=== PATIENT | female | born 1970 | race Hispanic/Latino ===

== ENCOUNTER 2021-09-05 09:42 | Inpatient (IN) | payer OTHER ==
--- NOTE | 2021-09-05 10:43 | EDPHYS ---
Physician Documentation [facility] Name: Shanae Loco Age: 50 yrs Sex: Female : 1970 Arrival Date: 09/05/2021 Time: 09:53 Bed 5 Private MD: ED Physician Jorge Murillo HPI: 09/05 10:36 This 50 yrs old Female presents to ER via EMS with complaints of possible aspiration. rn 10:36 The patient has shortness of breath at rest. Onset: The symptoms/episode began/occurred rn just prior to arrival. Duration: The symptoms are continuous. The patient's shortness of breath is aggravated by nothing, is alleviated by nothing. Severity of symptoms: At their worst the symptoms were moderate in the emergency department the symptoms have improved. The patient has not experienced similar symptoms in the past. The patient has been recently seen by a physician:. Pt getting endoscopy, sent here for possible aspiration following procedure, began to cough and EMS was told O2 80% on RA. EMS got O2 90%. NO chronic lung problems. + cough and sob. Was not ill prior to procedure. States was getting scoped for persistent abd pain, told might need gallbladder removed soon.. Historical: - Allergies: 10:32 No Known Allergies; ph - PMHx: 10:32 Diabetes mellitus; ph - Immunization history:: Adult Immunizations unknown. - Social history:: Smoking status: Patient denies any tobacco usage or history of. - Family history:: not pertinent. - Hospitalizations: : No recent hospitalization is reported. ROS: 10:36 Constitutional: Negative for fever, chills, and weight loss, Eyes: Negative for injury, rn pain, redness, and discharge, Neck: Negative for injury, pain, and swelling, Cardiovascular: Negative for chest pain, palpitations, and edema, Respiratory: Negative for wheezing, and pleuritic chest pain, Abdomen/GI: Negative for vomiting, diarrhea, and constipation, Back: Negative for injury and pain, MS/Extremity: Negative for injury and deformity, Skin: Negative for injury, rash, and discoloration, Neuro: Negative for headache, weakness, numbness, tingling, and seizure. Exam: 10:36 Constitutional: This is a well developed, well nourished patient who is awake, alert, rn mild tachypnea Head/Face: Normocephalic, atraumatic. Eyes: Periorbital areas with no swelling, redness, or edema. ENT: MMM, no stridor Neck: Trachea midline, no masses palpated, and no cervical lymphadenopathy. No crepitus Cardiovascular: Regular rate and rhythm. No pulse deficits. Respiratory: + mild tachypnea, no retractions, + coughing Abdomen/GI: soft, mild epigastric tenderness Skin: Warm, dry MS/ Extremity: Pulses equal, no cyanosis. Neuro: Awake and alert, GCS 15 11:54 ECG was reviewed by the Attending Physician. rn Vital Signs: 10:28 BP 137 / 71; Pulse 99; Resp 18; Temp 97.4; Pulse Ox 93% on R/A; Weight 90.72 kg; Height ph 5 ft. 4 in. (162.56 cm); 11:30 BP 154 / 72; Pulse 96; Resp 24; Pulse Ox 91% on R/A; ph 12:33 BP 142 / 64; Pulse 101; Resp 20; Pulse Ox 94% on 2 lpm NC; ph 13:30 BP 136 / 78; Pulse 100; Resp 20; Pulse Ox 93% on 2 lpm NC; ph 14:30 BP 139 / 68; Pulse 101; Resp 20; Temp 97.8(TE); Pulse Ox 93% 2 lpm ; ph 10:28 Body Mass Index 34.33 (90.72 kg, 162.56 cm) ph MDM: 09:53 Patient medically screened. rn 10:40 Differential diagnosis: pneumonia, Pneumothorax pulmonary edema, aspiration. Data rn reviewed: vital signs, nurses notes, lab test result(s), radiologic studies, and as a result, I will admit patient. Counseling: I had a detailed discussion with the patient and/or guardian regarding: the historical points, exam findings, and any diagnostic results supporting the discharge/admit diagnosis, lab results, radiology results, the need for further work-up and treatment in the hospital. Response to treatment: the patient's symptoms have mildly improved after treatment, and as a result, I will admit patient. Admission orders: after a detailed discussion of the patient's condition and case, the admit orders are written by me. 09/05 08:54 Order name: [facility]; Complete Time: 11:43 rn 09/05 08:54 Order name: Blood Culture Adult (2) rn 09/05 09:54 Order name: CBC with Diff; Complete Time: 11:43 rn 09/05 09:54 Order name: Hepatic Function; Complete Time: 11:43 rn 09/05 09:54 Order name: Lipase; Complete Time: 11:43 rn 09/05 09:54 Order name: Magnesium; Complete Time: 11:43 rn 09/05 09:54 Order name: NT PRO-BNP; Complete Time: 11:43 rn 09/05 09:54 Order name: PT-INR; Complete Time: 11:43 rn 09/05 09:54 Order name: Ptt, Activated; Complete Time: 11:43 rn 09/05 09:54 Order name: XRAY CXR (1 view); Complete Time: 12:24 rn 09/05 09:54 Order name: ABG; Complete Time: 11:43 rn 09/05 09:54 Order name: SARS-COV-2 RT PCR (Document "Date of Onset" if Symptomatic) rn 09/05 12:10 Order name: COVID-19 SARS RT PCR (Document "Date of Onset" if Symptomatic) 09/05 09:54 Order name: EKG; Complete Time: 09:55 rn 09/05 09:54 Order name: Cardiac monitoring; Complete Time: 10:34 rn 09/05 09:54 Order name: EKG - Nurse/Tech; Complete Time: 10:50 rn 09/05 09:54 Order name: IV Saline Lock; Complete Time: 11:26 rn 09/05 09:54 Order name: Labs collected and sent; Complete Time: 11:26 rn 09/05 09:54 Order name: O2 Per Protocol; Complete Time: 10:33 rn 09/05 09:54 Order name: O2 Sat Monitoring; Complete Time: 10:33 rn EC:54 Rate is 104 beats/min. Rhythm is regular. QRS [place] is Normal. Right axis deviation rn noted. QRS is negative in leads I, aVF. AL interval is normal. QRS interval is normal. QT interval is normal. No Q waves. T waves are Normal. No ST changes noted. Clinical impression: Sinus tachycardia. Interpreted by me. Reviewed by me. Administered Medications: 10:34 Drug: Xopenex (levalbuterol) 1.25 mg Route: Inhalation; ph 11:00 Follow up: Response: No adverse reaction ph 12:18 Drug: Zosyn (piperacillin-tazobactam) 3.375 grams Route: IVPB; Infused Over: 60 mins; ph Site: right antecubital; 13:20 Follow up: Response: No adverse reaction; IV Status: Completed infusion ph 12:18 Drug: Tussionex Pennkinetic ER (chlorpheniramine-hydrocodone) Suspension 5 ml Route: PO;ph 12:30 Follow up: Response: No adverse reaction ph 12:18 Drug: ProTONIX (pantoprazole) 40 mg Route: IVP; Site: right antecubital; ph 12:30 Follow up: Response: No adverse reaction ph 13:20 Drug: Zofran (Ondansetron) 4 mg Route: IVP; Site: right antecubital; jl7 13:40 Follow up: Response: No adverse reaction; Nausea is decreased ph 13:23 Drug: morphine 4 mg Route: IVP; Infused Over: 4 mins; Site: right antecubital; jl7 13:40 Follow up: Response: No adverse reaction; Pain is decreased; RASS: Alert and Calm (0) ph Disposition Summary: 09/05/21 10:42 Hospitalization Ordered Hospitalization Status: Inpatient Admission rn Provider: Soto Rees rn Location: Telemetry/MedSurg (Inpatient) rn Condition: Stable rn Problem: new rn Symptoms: have improved rn Bed/Room Type: Standard rn Room Assignment: [facility](09/05/21 14:10) [email or web address] Diagnosis - Aspiration Pneumonitis rn - Hypoxemia rn Forms: - Medication Reconciliation Form rn - SBAR form rn Signatures: Dispatcher [employer] Jorge Pope MD MD rn Hall, Patricia, RN RN ph Leal, Jahala, RN RN Soco Mustafa [email or web address] Corrections: (The following items were deleted from the chart) 14:10 10:42 rn kj1
--- NOTE | 2021-09-05 10:43 | ER ---
Nurse's Notes [facility] Name: Shanae Loco Age: 50 yrs Sex: Female : 1970 Arrival Date: 09/05/2021 Time: 09:53 Bed 5 Private MD: Diagnosis: Aspiration Pneumonitis;Hypoxemia Presentation: 09/05 10:28 Chief complaint: EMS states: Pt was having endoscopy at center, Spo2 dropped to 50s ph during procedure and it is believed that the pt may have aspirated, Spo2 improved to 93% on 4L NC, pt received 400 mg propofol, 4 mg of zofran, and albuterol x 2, other VSS. Coronavirus screen: Vaccine status: Patient reports receiving the 2nd dose of the covid vaccine. Ebola Screen: No symptoms or risks identified at this time. Initial Sepsis Screen: Does the patient meet any 2 criteria? No. Patient's initial sepsis screen is negative. Does the patient have a suspected source of infection? No. Patient's initial sepsis screen is negative. Risk Assessment: Do you want to hurt yourself or someone else? Patient reports no desire to harm self or others. Onset of symptoms was September 05, 2021. 10:28 Method Of Arrival: EMS: [facility] ph 10:28 Acuity: DANIEL 2 ph Historical: - Allergies: 10:32 No Known Allergies; ph - PMHx: 10:32 Diabetes mellitus; ph - Immunization history:: Adult Immunizations unknown. - Social history:: Smoking status: Patient denies any tobacco usage or history of. - Family history:: not pertinent. - Hospitalizations: : No recent hospitalization is reported. Screenin:34 Abuse screen: Denies threats or abuse. Denies injuries from another. Nutritional ph screening: No deficits noted. Tuberculosis screening: No symptoms or risk factors identified. Fall Risk None identified. Assessment: 10:33 General: Appears in no apparent distress. uncomfortable, Behavior is calm, cooperative, ph appropriate for age. Pain: Complains of pain in chest and abdomen. Neuro: Level of Consciousness is awake, obeys commands, Oriented to person, place, time, situation. Cardiovascular: Capillary refill < 3 seconds in bilateral fingers Patient's skin is warm and dry. Respiratory: Reports shortness of breath at rest Airway is patent Respiratory effort is even, unlabored, Respiratory pattern is regular, symmetrical. Derm: Skin is intact, is healthy with good turgor, Skin is pink, warm \\T\\ dry. 11:30 Reassessment: Patient appears in no apparent distress at this time. Patient and/or ph family updated on plan of care and expected duration. Pain level reassessed. Patient is alert, oriented x 3, equal unlabored respirations, skin warm/dry/pink. 12:32 Reassessment: Patient appears in no apparent distress at this time. Patient and/or ph family updated on plan of care and expected duration. Pain level reassessed. Patient is alert, oriented x 3, equal unlabored respirations, skin warm/dry/pink. 13:30 Reassessment: Patient appears in no apparent distress at this time. Patient and/or ph family updated on plan of care and expected duration. Pain level reassessed. Patient is alert, oriented x 3, equal unlabored respirations, skin warm/dry/pink. 14:30 Reassessment: Patient appears in no apparent distress at this time. Patient and/or ph family updated on plan of care and expected duration. Pain level reassessed. Patient is alert, oriented x 3, equal unlabored respirations, skin warm/dry/pink. Vital Signs: 10:28 BP 137 / 71; Pulse 99; Resp 18; Temp 97.4; Pulse Ox 93% on R/A; Weight 90.72 kg; Height ph 5 ft. 4 in. (162.56 cm); 11:30 BP 154 / 72; Pulse 96; Resp 24; Pulse Ox 91% on R/A; ph 12:33 BP 142 / 64; Pulse 101; Resp 20; Pulse Ox 94% on 2 lpm NC; ph 13:30 BP 136 / 78; Pulse 100; Resp 20; Pulse Ox 93% on 2 lpm NC; ph 14:30 BP 139 / 68; Pulse 101; Resp 20; Temp 97.8(TE); Pulse Ox 93% 2 lpm ; ph 10:28 Body Mass Index 34.33 (90.72 kg, 162.56 cm) ph ED Course: 09:53 Patient arrived in ED. rn 09:53 Jorge Murillo MD is Attending Physician. rn 10:28 Sammie Cervantes RN is Primary Nurse. ph 10:32 Triage completed. ph 10:32 Arm band placed on Patient placed in an exam room, on a stretcher. ph 10:34 Patient has correct armband on for positive identification. Placed in gown. Bed in low ph position. Call light in reach. Side rails up X 1. 10:41 Soto Rees is Hospitalizing Provider. rn 10:49 EKG done, by ED staff. tp1 10:59 XRAY CXR (1 view) In Process Unspecified. EDMS 13:52 COVID-19 SARS RT PCR (Document "Date of Onset" if Symptomatic) Sent. kj1 15:45 No provider procedures requiring assistance completed. Patient admitted, IV remains in ph place. Administered Medications: 10:34 Drug: Xopenex (levalbuterol) 1.25 mg Route: Inhalation; ph 11:00 Follow up: Response: No adverse reaction ph 12:18 Drug: Zosyn (piperacillin-tazobactam) 3.375 grams Route: IVPB; Infused Over: 60 mins; ph Site: right antecubital; 13:20 Follow up: Response: No adverse reaction; IV Status: Completed infusion ph 12:18 Drug: Tussionex Pennkinetic ER (chlorpheniramine-hydrocodone) Suspension 5 ml Route: PO;ph 12:30 Follow up: Response: No adverse reaction ph 12:18 Drug: ProTONIX (pantoprazole) 40 mg Route: IVP; Site: right antecubital; ph 12:30 Follow up: Response: No adverse reaction ph 13:20 Drug: Zofran (Ondansetron) 4 mg Route: IVP; Site: right antecubital; jl7 13:40 Follow up: Response: No adverse reaction; Nausea is decreased ph 13:23 Drug: morphine 4 mg Route: IVP; Infused Over: 4 mins; Site: right antecubital; jl7 13:40 Follow up: Response: No adverse reaction; Pain is decreased; RASS: Alert and Calm (0) ph Medication: 10:34 VIS not applicable for this client. ph Outcome: 10:42 Decision to Hospitalize by Provider. rn 15:49 Patient left the ED. kj1 15:49 Admitted to Med/surg accompanied by tech, via wheelchair, with chart. ph 15:49 Condition: stable 15:49 Instructed on the need for admit. Signatures: Dispatcher [employer] EDJorge Jackson MD MD rn Hall, Sammie, RN RN ph Jennifer, CYNTHIA Tineo RN 7 Soco Anderson1 Sapphire Ambrocio 1
[2021-09-05 11:01] LABS: Absolute Lymphocytes (CBC) 1.7 K/uL (0.7-4.9); Hematocrit 42.5 % (36.0-45.0); Lymphocytes % 9.4 % (15.3-44.8); MCV 86.7 fL (80-100); MPV 9.1 fL (7.6-11.3)
[2021-09-05 11:06] LABS: Protime INR 1.03
[2021-09-05 11:13] LABS: Albumin 3.3 g/dL (3.4-5.0); Bilirubin Direct 0.2 mg/dL (0-0.2); Bilirubin Total 0.5 mg/dL (0.2-1.0); Magnesium 1.8 mg/dL (1.8-2.4); Potassium 4.3 mmol/L (3.5-5.1); Protein, Total 7.9 g/dL (6.4-8.2)
[2021-09-05 11:18] LABS: Blood Gas Oxyhemoglobin 95.3 % (94-97); Blood O2 Saturation 97.3 % (92-98.5)
[2021-09-05] MEDS ORDERED: NA CHLORIDE 0.9% 100 ML ONE (11:39)
[2021-09-05] MEDS ORDERED: PIPERACIL/TAZO 3.375 GM VIAL IV ONE (11:39)
[2021-09-05] MEDS ORDERED: PANTOPRAZOLE 40 MG INJ ONE (12:16)
[2021-09-05] MEDS ORDERED: HYDROCODONE/CHLORPHEN 5 ML/OSYR ONE (12:16)
--- NOTE | 2021-09-05 12:18 | P.HP ---
Certification for Inpatient Patient admitted to: Observation With expected LOS: <2 Midnights Practitioner: I am a practitioner with admitting privileges, knowledge of patient current condition, hospital course, and medical plan of care. Services: Services provided to patient in accordance with Admission requirements found in Title 42 Section 412.3 of the Code of Federal Regulations Patient History Date of Service: 09/05/21 Reason for admission: Shortness of breath and coughing. History of Present Illness: 50-year-old woman with a history of diabetes mellitus type 2 on metformin, who underwent EGD for complaint of abdominal pain was brought to the emergency department due to coughing, shortness of breath, wheezing and respiratory distress right after EGD. Patient is suspected to have aspirated during the procedure. Per report, she was hypoxic with oxygen saturation around 80%. EMS was called and patient was brought to the emergency department where her oxygen saturation was 93% on room air. Chest x-ray done in the ED suggest left lung infiltrate. She was maintained on 1 L by nasal cannula of oxygen in the ED. she has leukocytosis and blood sugars significantly elevated. Patient hospitalized for further management. Allergies No Known Allergies Allergy (Unverified 09/05/21 16:04) - Past Medical/Surgical History Diabetic: Yes -: DM type II -: Chronic abdominal pain -: Obesity -: History of anxiety and depression - Family History Father -: Diabetes - Social History Smoking Status: Never smoker Alcohol use: No CD- Drugs: No Place of Residence: Home Review of Systems Other: Patient denied any chest pain or fever. She denied any vomiting. No prior diarrhea. She denied any dysuria. Except as documented, all other systems reviewed and negative. Physical Examination - Physical Exam General: Alert, In no apparent distress, Oriented x3 HEENT: Atraumatic, PERRLA, Mucous membr. moist/pink, Other (Poor dentition), EOMI, Sclerae nonicteric Neck: JVD not distended Respiratory: Expiratory wheezes (Bilateral, adequate breath sounds bilaterally, no crackles.) Cardiovascular: No edema, Regular rate/rhythm, Normal S1 S2, No murmurs Capillary refill: <2 Seconds Gastrointestinal: Normal bowel sounds, Soft and benign, Non-distended, No tenderness, No rebound Musculoskeletal: No swelling, No tenderness Integumentary: No rashes, No erythema, No cyanosis Neurological: Normal speech, Normal strength at 5/5 x4 extr, Cranial nerves 3-12 intact Lymphatics: No axilla or inguinal lymphadenopathy - Studies Laboratory Data (last 24 hrs) 09/05/21 10:45: PT 11.3, INR 1.03, APTT 30.3 09/05/21 10:45: WBC 18.3 H, Hgb 14.2, Hct 42.5, Plt Count 285 09/05/21 10:45: Sodium 137, Potassium 4.3, BUN 15, Creatinine 0.72, Glucose 364 H, Magnesium 1.8, Total Bilirubin 0.5, AST 7 L, ALT 18, Alkaline Phosphatase 121 H, Lipase 52 L Assessment and Plan - Problems (Diagnosis) (1) Aspiration pneumonia Current Visit: Yes Status: Acute (2) Sepsis Current Visit: Yes Status: Acute (3) Acute respiratory failure with hypoxia Current Visit: Yes Status: Acute (4) Type 2 diabetes mellitus with hyperglycemia Current Visit: Yes Status: Acute - Plan Admit patient to the medical floor. Sepsis protocol initiated. Patient given IV fluid, started on IV Zosyn for aspiration pneumonia. Also given his IV steroid for aspiration pneumonitis. Follow blood cultures. Blood glucose management with insulin sliding scale. Anticipating patient will also need long-acting insulin coverage. Wean off oxygen as tolerated. Bronchodilators as needed. Hold metformin. Follow blood cultures. - Advance Directives Does patient have a Living Will: No Does patient have a Durable POA for Healthcare: No
--- NOTE | 2021-09-05 12:18 | RAD REPORT ---
EXAM DESCRIPTION: [place] Single View09/05/2021 10:57 am CLINICAL HISTORY: Cough COMPARISON: none FINDINGS: The left lung is hazy. Right lung appears clear. Heart is normal size IMPRESSION: Mid left lung is hazy which may indicate a mild pneumonia
[2021-09-05] MEDS ORDERED: MORPHINE 4 MG/ML SYR ONE (13:15)
[2021-09-05] MEDS ORDERED: ONDANSETRON 4 MG/2 ML VIAL ONE (13:15)
[2021-09-05] MEDS ORDERED: NA CHLORIDE 0.9% 1,000 ML IV SCH (16:05)
[2021-09-05] MEDS: HEPARIN 5000 UNIT/ML 1 ML VIAL SQ SCH (16:25)
[2021-09-05] MEDS: METHYLPREDNISOLONE 40 MG INJ IV SCH (16:26)
[2021-09-05] MEDS: INSULIN -REGULAR HUMAN 50 UNIT/0.5 ML ML SQ SCH ×2 (16:26→21:01)
[2021-09-05 16:43] VITALS: BMI 42.2
--- NOTE | 2021-09-05 16:49 | P.INFCA ---
Sepsis Focused Assessment - Focused Assessment Complete? Sepsis Focused Assessment Completed?: Yes - Sepsis Screen Result Severe Sepsis: Positive Septic Shock: Negative - Evaluation Current stage of sepsis: Severe sepsis - Vital Signs Reviewed: Yes Temperature: 98.7 F Heart rate: 103 Blood Pressure: 125/73 Respiratory Rate: 14 O2 Sat by Pulse Oximetry: 94 - Examination Heart: Regular rate/rhythm, S1, S2 Lungs: Diminished air movement, Wheezes Peripheral pulses: 3+ Normal Peripheral pulse location: Radial Capillary refill: <2 Seconds Skin examination: Normal turgor
[2021-09-05] MEDS: ONDANSETRON 4 MG/2 ML VIAL IV PRN ×2 (17:18→22:58)
[2021-09-05] MEDS: ACETAMINOPHEN 500 MG TAB PO PRN (17:18)
[2021-09-05] MEDS: PIPER TAZO 3.375 GM in NA CHLORIDE 0.9% 100 ML IV SCH (17:18)
[2021-09-05] MEDS: MORPHINE 2 MG/ML SYR IV PRN (22:30)
[2021-09-05] MEDS: FAMOTIDINE 20 MG/2 ML VIAL IV SCH (22:58)
[2021-09-06] MEDS: PIPER TAZO 3.375 GM in NA CHLORIDE 0.9% 100 ML IV SCH ×4 (00:55→18:14)
[2021-09-06] MEDS: METHYLPREDNISOLONE 40 MG INJ IV SCH ×2 (00:56→09:41)
[2021-09-06] MEDS: HEPARIN 5000 UNIT/ML 1 ML VIAL SQ SCH ×3 (00:56→18:14)
[2021-09-06 04:09] LABS: Absolute Lymphocytes (CBC) 1.1 K/uL (0.7-4.9); Hematocrit 40.9 % (36.0-45.0); Lymphocytes % 4.2 % (15.3-44.8); MCV 87.5 fL (80-100); MPV 9.1 fL (7.6-11.3); RBC Red Blood Cell Count 4.67 M/uL (3.86-4.86)
[2021-09-06 04:23] LABS: Phosphorus 3.3 mg/dL (2.5-4.9); Potassium 4.3 mmol/L (3.5-5.1)
[2021-09-06 04:54] LABS: Blood Morphology Comment NOT SEEN (NOT SEEN); Platelet Estimate ADEQ
[2021-09-06] MEDS: INSULIN -REGULAR HUMAN 50 UNIT/0.5 ML ML SQ SCH ×5 (06:06→21:04)
[2021-09-06] MEDS: ACETAMINOPHEN 500 MG TAB PO PRN ×2 (06:14→13:24)
[2021-09-06] MEDS: MORPHINE 2 MG/ML SYR IV PRN (06:21)
--- NOTE | 2021-09-06 07:52 | EKG ---
Test Date: 2021-09-05 Test Time: 10:49:00 Senior Technical Business Analyst: YUNIEL MEASUREMENT RESULTS: Intervals: Rate: 104 IL: 148 QRSD: 70 QT: 370 QTc: 486 [place]: P: 55 IL: 148 QRS: 265 T: 51 INTERPRETIVE STATEMENTS: Sinus tachycardia Right superior axis deviation Anterior infarct, age undetermined Abnormal ECG No previous ECG available for comparison Electronically Signed On 09-06-21 07:48:34 CDT by Alexx Hall
[2021-09-06] MEDS: FAMOTIDINE 20 MG/2 ML VIAL IV SCH (09:40)
[2021-09-06] MEDS ORDERED: NA CHLORIDE 0.9% 250 ML ONE (11:54)
--- NOTE | 2021-09-06 15:17 | P.PN ---
Subjective Date of Service: 09/06/21 Chief Complaint: Shortness of breath and coughing. Patient complaining of cough with hemoptysis. White cell count trended up No recorded fever. She also reports prior trouble with swallowing and was supposed to undergo esophageal dilatation during the endoscopy. She is ambulatory and not hypoxic. Physical Examination - Vital Signs Temperature: 97.9 F Blood Pressure: 149/71 Pulse: 79 Respirations: 18 Pulse Ox (%): 98 - Physical Exam General: Alert, In no apparent distress, Oriented x3 HEENT: Mucous membr. moist/pink Neck: JVD not distended Respiratory: Expiratory wheezes (Mild scattered rhonchi) Cardiovascular: No edema, Regular rate/rhythm, Normal S1 S2 Gastrointestinal: Normal bowel sounds, Soft and benign, Non-distended, No tenderness Musculoskeletal: No swelling Integumentary: No rashes, No erythema Neurological: Normal strength at 5/5 x4 extr, Cranial nerves 3-12 intact Assessment And Plan - Current Problems (Diagnosis) (1) Aspiration pneumonia Current Visit: Yes Status: Acute (2) Sepsis Current Visit: Yes Status: Acute (3) Acute respiratory failure with hypoxia Current Visit: Yes Status: Acute (4) Type 2 diabetes mellitus with hyperglycemia Current Visit: Yes Status: Acute - Plan Continue IV fluid. Continue IV Zosyn for aspiration pneumonia. May increase antibiotic coverage if leukocytosis continues to worsen. Discontinue IV steroid. Blood cultures: No growth to date. Blood glucose management with insulin sliding scale. Added Lantus insulin for persistent hypoglycemia Wean off oxygen as tolerated. Speech therapy consult for dysphagia screen. We will start feeding if patient passes swallow evaluation. Bronchodilators as needed.
[2021-09-06] MEDS: NA CHLORIDE 0.9% 1,000 ML IV SCH ×2 (15:19→21:04)
[2021-09-06] MEDS ORDERED: FAMOTIDINE 20 MG/2 ML VIAL IV ONE (21:10)
[2021-09-07] MEDS: PIPER TAZO 3.375 GM in NA CHLORIDE 0.9% 100 ML IV SCH ×4 (01:02→18:23)
[2021-09-07] MEDS: HEPARIN 5000 UNIT/ML 1 ML VIAL SQ SCH ×3 (01:03→18:23)
[2021-09-07] MEDS: BENZONATATE 100 MG CAP PO PRN (01:58)
[2021-09-07 06:23] LABS: Potassium 3.6 mmol/L (3.5-5.1)
[2021-09-07 06:31] LABS: Absolute Lymphocytes (CBC) 3.2 K/uL (0.7-4.9); Lymphocytes % 15.4 % (15.3-44.8); MCV 87.7 fL (80-100); MPV 9.2 fL (7.6-11.3); RBC Red Blood Cell Count 4.22 M/uL (3.86-4.86)
[2021-09-07] MEDS: NA CHLORIDE 0.9% 1,000 ML IV SCH (06:37)
[2021-09-07] MEDS: FAMOTIDINE 20 MG/2 ML VIAL IV SCH (08:17)
[2021-09-07] MEDS: MORPHINE 2 MG/ML SYR IV PRN (08:17)
[2021-09-07] MEDS: INSULIN -REGULAR HUMAN 50 UNIT/0.5 ML ML SQ SCH ×4 (08:18→21:24)
[2021-09-07] MEDS: FAMOTIDINE 20 MG TAB PO SCH (08:33)
[2021-09-07] MEDS ORDERED: KCL 20 MEQ/100 mL IVPB 20 MEQ/100 ML BAG IV SCH (09:00)
--- NOTE | 2021-09-07 10:57 | RAD REPORT ---
EXAM DESCRIPTION: RAD - Barium Swallow Modified - 09/07/2021 10:32 am CLINICAL HISTORY: Difficulty swallowing FINDINGS: Laryngeal penetration not cleared with thin ,whole pill with thin by cup. Pharyngeal residue vallecular and pyriform all consistancies trace to mild thin puree dry solid whole pill with thin by cup. Osteophyte between c5-c6. Fluoro time: 3 minutes 38 seconds. Twenty-two Fluoroscopic spot series obtained
[2021-09-07] MEDS: ALBUTEROL 2.5 MG/3 ML NEB SOL NEB PRN (17:00)
--- NOTE | 2021-09-07 19:17 | P.PN ---
Subjective Date of Service: 09/07/21 Chief Complaint: Shortness of breath and coughing. Patient seen by speech, modified barium swallow done suggested mild dysphagia. White cell count trending down. No recorded fever. Physical Examination - Vital Signs Temperature: 97.8 F Blood Pressure: 161/77 Pulse: 68 Respirations: 18 Pulse Ox (%): 98 Assessment And Plan - Current Problems (Diagnosis) (1) Aspiration pneumonia Current Visit: Yes Status: Acute (2) Sepsis Current Visit: Yes Status: Acute (3) Acute respiratory failure with hypoxia Current Visit: Yes Status: Acute (4) Type 2 diabetes mellitus with hyperglycemia Current Visit: Yes Status: Acute - Plan Physical examination General: Alert, In no apparent distress, Oriented x3 HEENT: Mucous membr. moist/pink Neck: JVD not distended Respiratory: Lungs clear to auscultation Cardiovascular: No edema, Regular rate/rhythm, Normal S1 S2 Gastrointestinal: Normal bowel sounds, Soft and benign, Non-distended, No tenderness Musculoskeletal: No swelling Integumentary: No rashes, No erythema Neurological: Normal strength at 5/5 x4 extr, Cranial nerves 3-12 intact Continue IV fluid. Continue IV Zosyn for aspiration pneumonia. Off IV steroid. Blood cultures: No growth to date. Blood glucose management with insulin sliding scale. Continue Lantus insulin. Currently tolerating room air Speech therapy input appreciated. Modified barium swallow results reviewed. Patient started on mechanical soft diet. Bronchodilators as needed.
[2021-09-08] MEDS: HEPARIN 5000 UNIT/ML 1 ML VIAL SQ SCH ×3 (00:19→15:56)
[2021-09-08] MEDS: PIPER TAZO 3.375 GM in NA CHLORIDE 0.9% 100 ML IV SCH ×4 (01:14→15:57)
[2021-09-08 06:05] LABS: Potassium 3.5 mmol/L (3.5-5.1)
[2021-09-08] MEDS: NA CHLORIDE 0.9% 1,000 ML IV SCH (06:12)
[2021-09-08] MEDS: MORPHINE 2 MG/ML SYR IV PRN ×2 (07:31→17:47)
[2021-09-08 08:33] LABS: Absolute Lymphocytes (CBC) 3.2 K/uL (0.7-4.9); Hematocrit 37.3 % (36.0-45.0); Lymphocytes % 28.9 % (15.3-44.8); MCV 86.9 fL (80-100); MPV 8.7 fL (7.6-11.3); RBC Red Blood Cell Count 4.29 M/uL (3.86-4.86)
[2021-09-08] MEDS ORDERED: POTASSIUM 25 MEQ EFFERV TAB PO ONE (09:00)
[2021-09-08] MEDS: FAMOTIDINE 20 MG TAB PO SCH (09:20)
[2021-09-08] MEDS: INSULIN -REGULAR HUMAN 50 UNIT/0.5 ML ML SQ SCH ×4 (09:21→22:03)
[2021-09-08] MEDS: ALBUTEROL 2.5 MG/3 ML NEB SOL NEB PRN (12:10)
--- NOTE | 2021-09-08 12:52 | RAD REPORT ---
EXAM DESCRIPTION: [place] Single View09/08/2021 12:34 pm CLINICAL HISTORY: Chest pain COMPARISON: September 05, 2021 FINDINGS: Left lung opacities have partially resolved Right lung appears clear. Heart is normal size IMPRESSION: Improvement in a left pneumonia
[2021-09-08] MEDS: BENZONATATE 100 MG CAP PO PRN ×2 (13:25→22:11)
[2021-09-08] MEDS: ACETAMINOPHEN 500 MG TAB PO PRN (15:56)
[2021-09-09] MEDS: HEPARIN 5000 UNIT/ML 1 ML VIAL SQ SCH ×3 (01:09→15:54)
[2021-09-09] MEDS: PIPER TAZO 3.375 GM in NA CHLORIDE 0.9% 100 ML IV SCH ×2 (01:11→08:39)
[2021-09-09] MEDS: BENZONATATE 100 MG CAP PO PRN (06:56)
[2021-09-09] MEDS: INSULIN -REGULAR HUMAN 50 UNIT/0.5 ML ML SQ SCH ×3 (08:39→16:03)
[2021-09-09] MEDS: FAMOTIDINE 20 MG TAB PO SCH (08:40)
[2021-09-09 08:47] VITALS: O2SAT 96
[2021-09-09] MEDS: ACETAMINOPHEN 500 MG TAB PO PRN ×2 (09:55→17:10)
[2021-09-09] MEDS ORDERED: AMLODIPINE 10 MG TAB PO SCH (10:00)
[2021-09-09] MEDS ORDERED: HYDRALAZINE HCL 20 MG/ML VIAL IV ONE ×3 (11:30→16:00)
[2021-09-09] MEDS: MORPHINE 2 MG/ML SYR IV PRN (12:32)
[2021-09-09] MEDS ORDERED: LORAZEPAM 1 MG TABLET PO PRN (13:52)
[2021-09-09] MEDS ORDERED: GUAIFENESIN/DM 5 ML UCUP PO PRN (13:53)
[2021-09-09] MEDS ORDERED: ZOLPIDEM TARTRATE 10 MG TABLET PO PRN (13:54)
[2021-09-09] MEDS ORDERED: HYDROCODONE/APAP 5/325 MG TAB PO PRN (14:04)
--- NOTE | 2021-09-09 15:38 | P.DS ---
Admission Date: 09/05/21 Discharge Date: 09/09/21 Disposition: ROUTINE DISCHARGE Discharge Condition: FAIR Reason for Admission: Shortness of breath and coughing. - Problems (1) Aspiration pneumonia Current Visit: Yes Status: Acute (2) Sepsis Current Visit: Yes Status: Acute (3) Acute respiratory failure with hypoxia Current Visit: Yes Status: Acute (4) Type 2 diabetes mellitus with hyperglycemia Current Visit: Yes Status: Acute (5) Hypertension Current Visit: Yes Status: Acute Brief History of Present Illness: 50-year-old woman with a history of diabetes mellitus type 2 on metformin, who underwent EGD for complaint of abdominal pain was brought to the emergency department due to coughing, shortness of breath, wheezing and respiratory distress right after EGD. Patient is suspected to have aspirated during the procedure. Per report, she was hypoxic with oxygen saturation around 80%. EMS was called and patient was brought to the emergency department where her oxygen saturation was 93% on room air. Chest x-ray done in the ED suggest left lung infiltrate. She was maintained on 1 L by nasal cannula of oxygen in the ED. she has leukocytosis and blood sugars significantly elevated. Patient hospitalized for further management. Hospital Course: Patient admitted to the medical floor and treated for aspiration pneumonia with IV Zosyn Also treated briefly with IV fluid and IV steroid for aspiration pneumonitis. Patient's clinical condition improved with treatment. Repeat chest x-ray demonstrated improvement in the left lower lobe infiltrate. She reported prior difficulty with swallowing and she had esophagus was also possibly dilated during the endoscopy. She was seen by speech therapy and barium swallow done. Patient subsequently placed on mechanical soft diet which she tolerated. Blood cultures: No growth to date. Blood glucose managed with insulin sliding scale and metformin. Patient was weaned off oxygen to room air which she tolerated. Her blood pressure was elevated. Hypertension was treated with oral amlodipine. She has clinically improved and deemed stable for discharge. She has poor dentition. She is prescribed Augmentin and clindamycin to continue treatment for for aspiration pneumonia. She is informed to follow with her GI regarding the result of endoscopy. She is also prescribed amlodipine for hypertension treatment. Vital Signs/Physical Exam: Temp Pulse Resp BP Pulse Ox 97.7 F 69 73 H 170/79 H 95 09/09/21 08:00 09/09/21 09:55 09/09/21 15:28 09/09/21 15:28 09/09/21 08:00 General: Alert, In no apparent distress HEENT: Mucous membr. moist/pink Neck: Supple, JVD not distended Respiratory: Clear to auscultation bilaterally, Normal air movement Cardiovascular: No edema, Regular rate/rhythm, Normal S1 S2 Gastrointestinal: Normal bowel sounds, Soft and benign, Non-distended, No tenderness Musculoskeletal: No swelling Integumentary: No rashes Neurological: Normal strength at 5/5 x4 extr Laboratory Data at Discharge: WBC 11.2 K/uL (4.3-10.9) H D 09/08/21 08:20 Hgb 12.6 g/dL (12.0-15.0) 09/08/21 08:20 Hct 37.3 % (36.0-45.0) 09/08/21 08:20 Plt Count 250 K/uL (152-406) 09/08/21 08:20 PT 11.3 SECONDS (9.5-12.5) 09/05/21 10:45 INR 1.03 09/05/21 10:45 APTT 30.3 SECONDS (24.3-36.9) 09/05/21 10:45 Sodium 144 mmol/L (136-145) 09/08/21 05:03 Potassium 3.5 mmol/L (3.5-5.1) 09/08/21 05:03 BUN 15 mg/dL (7-18) 09/08/21 05:03 Creatinine 0.52 mg/dL (0.55-1.3) L 09/08/21 05:03 Glucose 188 mg/dL (74-106) H 09/08/21 05:03 Phosphorus 3.3 mg/dL (2.5-4.9) 09/06/21 03:41 Magnesium 2.0 mg/dL (1.8-2.4) 09/06/21 03:41 Total Bilirubin 0.5 mg/dL (0.2-1.0) 09/05/21 10:45 AST 7 U/L (15-37) L 09/05/21 10:45 ALT 18 U/L (12-78) 09/05/21 10:45 Alkaline Phosphatase 121 U/L (45-117) H 09/05/21 10:45 Lipase 52 U/L (73-393) L 09/05/21 10:45 Home Medications: Metformin HCl 1 tab PO BID 09/05/21 Amlodipine [Norvasc*] 10 mg PO DAILY #30 tab 09/09/21 Amox/Clavulanate [Augmentin 875-125 Tab] 1 each PO BID #14 tab 09/09/21 Benzonatate [Tessalon Perle*] 100 mg PO TID PRN #30 cap 09/09/21 Guaif/Dm [Robitussin Dm*] 10 ml PO Q6H PRN #60 ucup 09/09/21 Hydrocodone 5/APAP 325 [[place] 5/325*] 1 tab PO Q6H PRN #12 tab 09/09/21 Lactobacillus Acidophilus [Acidophilus] 1 each PO TID #90 tablet 09/09/21 Zolpidem Tartrate [Ambien*] 10 mg PO BEDTIME PRN PRN #30 tablet 09/09/21 clindamycin HCL [Clindamycin HCl] 300 mg PO Q6H #20 capsule 09/09/21 New Medications: Lactobacillus Acidophilus [Acidophilus] 1 each PO TID #90 tablet Zolpidem Tartrate [Ambien*] 10 mg PO BEDTIME PRN PRN #30 tablet PRN Reason: Insomnia Amox/Clavulanate [Augmentin 875-125 Tab] 1 each PO BID #14 tab clindamycin HCL [Clindamycin HCl] 300 mg PO Q6H #20 capsule Hydrocodone 5/APAP 325 [[place] 5/325*] 1 tab PO Q6H PRN #12 tab PRN Reason: Pain Scale 5-7 (Moderate) Amlodipine [Norvasc*] 10 mg PO DAILY #30 tab Guaif/Dm [Robitussin Dm*] 10 ml PO Q6H PRN #60 ucup PRN Reason: COUGH - 2ND LINE Benzonatate [Tessalon Perle*] 100 mg PO TID PRN #30 cap PRN Reason: COUGH - 1ST LINE Diet: ADA Activity: Ad tequila Followup: Taz Fong MD [Primary Care Provider] - 1-2 Weeks Nathaniel Weir MD [OUTSIDE PHYSICIAN] - 1-2 Weeks Time spent managing pt's care (in minutes): 36
[2021-09-10 16:12] VITALS: BP 125/73; TEMP 98.7
== END 2021-09-09 17:45 | disposition home or self-care (01) | DRG 871 ==
LOC: ER 09:42 → ERHOLD 12:07 → 2ND 15:34 → OBSVTOIN 18:34
PROVIDERS: ADMIT Internal Medicine; ATTEND Internal Medicine
DX: A41.9 Sepsis, unspecified organism (principal); J69.0 Pneumonitis due to inhalation of food and vomit; J96.01 Acute respiratory failure with hypoxia; Z68.41 Body mass index [BMI] 40.0-44.9, adult; R04.2 Hemoptysis; E66.9 Obesity, unspecified; R65.20 Severe sepsis without septic shock; E11.65 Type 2 diabetes mellitus with hyperglycemia; I10 Essential (primary) hypertension; R13.10 Dysphagia, unspecified; Z20.822 Contact with and (suspected) exposure to COVID-19
CPT/HCPCS: 36415; 71045; 74230; 80048; 80076; 82805; 82947; 83690; 83735; 83880; 84100; 85025; 85610; 85730; 87040; 92526; 92610; 92611; 93005; 94640; 96365; 96375; 99285; C9113; G0378; J0360; J1644; J1815; J2270; J2405; J2543; J2920; J3480; J7030; J7050; U0003